=== PATIENT | female | born 1980 | race Caucasian/White ===

== ENCOUNTER 2022-08-15 21:03 | Emergency (ER) | payer OTHER ==
[~2022-08-15] VITALS: Ht 165.1 cm; Wt 72.7 kg
[~2022-08-15 21:03] MED LIST: NOCURR
[2022-08-15 22:59] VITALS: BP 126/77
== END 2022-08-15 23:05 | disposition home or self-care (01) ==
LOC: EMS 21:07
DX: S69.92XA Unspecified injury of left wrist, hand and finger(s), initial encounter (principal); M79.89 Other specified soft tissue disorders; X58.XXXA Exposure to other specified factors, initial encounter; Y93.89 Activity, other specified; Y92.89 Other specified places as the place of occurrence of the external cause; Y99.8 Other external cause status
CPT/HCPCS: 99281; Z7502